=== PATIENT | male | born 1975 | race Caucasian/White ===

== ENCOUNTER 2017-05-19 10:19 | Emergency (ER) | END 2017-05-19 11:05 | disposition home or self-care (01) ==

== ENCOUNTER 2017-06-26 11:25 | Emergency (ER) | END 2017-06-26 15:16 | disposition home or self-care (01) ==

== ENCOUNTER 2018-06-17 09:42 | Emergency (ER) | payer MEDICAID ==
[~2018-06-17] VITALS: Ht 152.4 cm; Wt 64.1 kg
[~2018-06-17 09:42] MED LIST: ALBU18HF INHALATION; ALPR0.25 PO; AMOX1TAB10 PO; AZIT500T3 PO; BENZ-6 PO; CETI10CA PO; FAMO-96 PO; FLUT9.9S NASAL; GUAI118L94 PO; HYDR-3498 PO; IBUP-1542 PO; LORA-441 PO; LORA1TAB54 PO; MAG355OR15 PO; METH500T PO; NAPR-985 PO; ONDA4TAB8 PO; PRED20TA PO; PRED5DRO20 BOTH EYES; PROM25TA14 PO; SODI30SP2 NS
[2018-06-17 09:45] VITALS: BP 132/72; PULSE 105; RESP 18; Ht 152.4 cm; Wt 64.1 kg
[2018-06-17] MEDS ORDERED: DOXY100T20 PO (10:53)
[2018-06-17] MEDS ORDERED: HC30CR25 TOP (10:53)
[2018-06-17] MEDS ORDERED: NYST15CR28 TOP (10:53)
--- NOTE | 2018-06-17 11:05 | ERD ---
ER Documentation Chief Complaint Chief Complaint GENITAL PAIN X 1 WEEK HPI 43-year-old male with no significant past medical history presenting to the emergency department complaining of rash to his perineal area for the past 6 days. Symptoms are moderate. He reports associated itching. He has never had these symptoms before. He states he is sexually monogamous with his of many years. He denies any penile discharge, testicular pain, dysuria, abdominal pain, nausea, vomiting, diarrhea, or other symptoms at this time. ROS All systems reviewed and are negative except as per history of present illness. Medications Home Meds Active Scripts Nystatin* (Nystatin*) 15 Gm Cr, 1 APPLIC TOP BID, #1 TUB Prov:JUAN MIGUEL MURILLO PA-C 06/17/18 Hydrocortisone* Topical (Hydrocortisone* Topical) 2.5%-28.3 Gm Cream..g., 1 APPLIC TOP BID, #1 TUB Prov:JUAN MIGUEL MURILLO PA-C 06/17/18 Doxycycline Hyclate* (Doxycycline Hyclate*) 100 Mg Tablet.dr, 100 MG PO BID for 10 Days, TAB Prov:JUAN MIGUEL MURILLO PA-C 06/17/18 Methocarbamol* (Robaxin*) 500 Mg Tab, 500 MG PO Q8, #15 TAB Prov:ADRIANA ORTEZ PA-C 06/26/17 Ibuprofen* (Motrin*) 600 Mg Tab, 600 MG PO Q6, #30 TAB Prov:ADRIANA ORTEZ PA-C 06/26/17 Sodium Chloride (Saline Nasal [place]) 30 Ml [place], 30 ML NS BID for 7 Days, SPRAY Prov:KERLINE BROWN PA-C 05/19/17 Loratadine/Pseudoephedrine* (Claritin-D* 12 Hr) 5-120 Mg Tab.er.12h, 1 TAB PO Q12, #30 TAB.SA Prov:KERLINE BROWN PA-C 05/19/17 Promethazine Hcl* (Phenergan*) 25 Mg Tablet, 25 MG PO Q6 PRN for NAUSEA AND/OR VOMITING, #30 TAB Prov:KERLINE BROWN PA-C 05/19/17 Benzonatate* (Tessalon Perle*) 100 Mg Capsule, 100 MG PO Q8H PRN for COUGH, #30 CAP Prov:KERLINE BROWN PA-C 05/19/17 Amoxicillin/Potassium Clav (Amox-Clav 875-125 mg Tablet) 875-125 mg Tab, 1 TAB PO BID for 10 Days, #20 TAB Prov:YVETTE PRICE NP 12/14/15 Fluticasone Propionate (Flonase Allergy Relief) 9.9 Ml [place].susp, 1 SPRAY NASAL BID, #1 BOTTLE TO EACH NOSTRIL Prov:YVETTE PRICE NP 10/04/15 Ibuprofen* (Motrin*) 600 Mg Tab, 600 MG PO Q6H PRN for PAIN AND OR ELEVATED TEMP, #30 TAB Prov:YVETTE PRICE NP 10/04/15 Cetirizine Hcl* (Zyrtec*) 10 Mg Capsule, 10 MG PO DAILY, #30 TAB.CHEW Prov:YVETTE PRICE NP 10/04/15 Guaifenesin-Codeine Phosphate* (Guaifenesin* with Codeine Liq) 120 Ml Liquid, 5 ML PO Q4H for COUGH, #60 ML Prov:YVETTE PRICE NP 10/04/15 Ibuprofen* (Motrin*) 600 Mg Tab, 600 MG PO Q8, #30 TAB 0 Refills Prov:PATITO JAVED PA-C 08/21/15 Albuterol Sulfate* (Ventolin HFA*) 18 Gm Hfa.aer.ad, 2 PUFF INHALATION Q4H, #1 INHALER Prov:JUAN MIGUEL HUYNH 05/18/15 Prednisone* (Prednisone*) 20 Mg Tab, 40 MG PO DAILY for 4 Days, TAB Prov:JUAN MIGUEL HUYNH. 05/18/15 Naproxen* (Naprosyn*) 500 Mg Tablet, 500 MG PO BID PRN for PAIN AND/OR INFLAMMATION, #20 TAB Prov:JUAN MIGUEL HUYNH. 05/18/15 Azithromycin* (Zithromax*) 500 Mg Tablet, 500 MG PO DAILY for 5 Days, TAB Prov:JUAN MIGUEL HUYNH. 05/18/15 Naproxen* (Naprosyn*) 500 Mg Tablet, 500 MG PO BID PRN for PAIN AND/OR INFLAMMATION, #30 TAB Prov:LIZ GOMEZ MD 11/30/14 Ondansetron Hcl* (Zofran*) 4 Mg Tablet, 4 MG PO Q6H for NAUSEA AND/OR VOMITING, #30 TAB Prov:LIZ GOMEZ MD 11/30/14 Mag Hydrox/Al Hydrox/Simeth (Maalox Max Strength Susp) 769 Ml Oral.susp, 2 TSP PO TID, #12 OZ Prov:LIZ GOMEZ MD 11/30/14 Alprazolam* (Xanax*) 0.25 Mg Tablet, 0.25 MG PO Q8H PRN for ANXIETY, #12 TAB Prov:LIZ GOMEZ MD 11/30/14 Hydrocodone Bit-Acetaminophen* ([place]*) 5-325 Mg Tab, 1 TAB PO Q6 PRN for PAIN, #7 TAB Prov:ANDREY DUENAS MD 11/28/14 Famotidine* (Pepcid*) 20 Mg Tablet, 0 PO BID for 4 Days, TAB Prov:ANDREY DUENAS MD 11/28/14 Lorazepam* (Ativan*) 0.5 Mg Tablet, 0.5 MG PO Q8, #10 Prov:ANDREY DUENAS MD 11/28/14 Reported Medications Prednisolone Acetate* (Pred Forte*) 5 Ml Susp, 1 DROP BOTH EYES QID, EA 11/30/14 Allergies Allergies: Coded Allergies: morphine (Unverified Allergy, Unknown, shaking, 06/26/17) PMhx/Soc History of Surgery: Yes (LEFT "CORNEA" EYE ) Anesthesia Reaction: No Hx Neurological Disorder: No Hx Respiratory Disorders: No Hx Cardiac Disorders: No Hx Psychiatric Problems: No Hx Miscellaneous Medical Probl: No Hx Alcohol Use: No Hx Substance Use: No Hx Tobacco Use: No Smoking Status: Never smoker FmHx Family History: No diabetes Physical Exam Vitals Vital Signs Date Temp Pulse Resp B/P (MAP) Pulse Ox O2 O2 Flow FiO2 Time Delivery Rate 06/17/18 97.8 105 18 132/72 99 09:45 (92) Physical Exam Const: No acute distress Head: Atraumatic Eyes: Normal Conjunctiva ENT: Normal External Ears, Nose and Mouth. Neck: Full range of motion. No meningismus. Resp: Clear to auscultation bilaterally Cardio: Regular rate and rhythm, no murmurs Abd: Soft, non tender, non distended. Normal bowel sounds. No rebound tenderness or guarding. No McBurney's point tenderness. Skin: Macular papular type rash noted to the perineum and of the guzman cleft. Back: No midline or flank tenderness Ext: No cyanosis, or edema Neur: Awake and alert Psych: Normal Mood and Affect Procedures/MDM 43-year-old male presenting the emergency department with signs and symptoms most consistent with folliculitis or dermatitis. The patient is stable and appropriate for treatment as an outpatient with prescriptions. Patient's dermatologic symptoms have stabilized while they have been evaluated in the department and are appropriate for outpatient work up. No evidence of Liu Ajay's syndrome, Kawasaki's, or sepsis. Departure Diagnosis: Primary Impression: Rash and other nonspecific skin eruption Condition: Fair Patient Instructions: Self-Care for Skin Rashes Additional Instructions: Llame al doctor MAANA y mony reena JANICE PARA DENTRO DE 1-2 HANCOCK.Dgale a la secretaria que nosotros le instruimos hacer esta janice.Avise o llame si bella condicin se empeora antes de la janice. Regresa aqui si peor o no mejor. JUAN MIGUEL MURILLO PA-C Jun 17, 2018 11:05
[2018-06-18] MEDS ORDERED: ACYC800T5 PO (10:17)
[2018-06-18] MEDS ORDERED: HYDR-4011 PO (10:19)
== END 2018-06-17 11:52 | disposition home or self-care (01) ==
LOC: FTE 09:42
DX: R21 Rash and other nonspecific skin eruption (principal)
CPT/HCPCS: 99283

== ENCOUNTER 2018-06-18 09:44 | Emergency (ER) | payer MEDICAID ==
[~2018-06-18] VITALS: Ht 152.4 cm; Wt 64.4 kg
[~2018-06-18 09:44] MED LIST changes: +DOXY100T20 PO; +HC30CR25 TOP; +NYST15CR28 TOP
[2018-06-18 09:46] VITALS: BP 130/76; PULSE 84; RESP 19; Ht 152.4 cm; Wt 64.4 kg
[2018-06-18] MEDS ORDERED: ACYC800T5 PO (10:17)
[2018-06-18] MEDS ORDERED: HYDR-4011 PO (10:19)
[2018-06-18] MEDS ORDERED: HYDROCODONE/APAP (10/325) TAB PO ONE (10:30)
--- NOTE | 2018-06-18 17:06 | ERD ---
ER Documentation Chief Complaint Chief Complaint groin pain/blisters on penis/buttocks x 3 days given antibiotics yesterday HPI This is a 43-year-old male who presents to the ER with complaint of penile and rectal pain. Patient was seen at this ER yesterday for the same and was prescribed antibiotics. Patient complaining today that pain is severe and burning and antibiotics are not helping. ROS All systems reviewed and are negative except as per history of present illness. Medications Home Meds Active Scripts Hydrocodone/Acetaminophen ([place] 5-325 Tablet) 1 Each Tablet, 1 EACH PO Q4 for pain for 3 Days, #10 TAB Prov:FARZANA NUNEZ NP 06/18/18 Acyclovir* (Zovirax*) 800 Mg Tablet, 800 MG PO TID for 3 Days, TAB Prov:FARZANA NUNEZ NP 06/18/18 Nystatin* (Nystatin*) 15 Gm Cr, 1 APPLIC TOP BID, #1 TUB Prov:JUAN MIGUEL MURILLO PA-C 06/17/18 Hydrocortisone* Topical (Hydrocortisone* Topical) 2.5%-28.3 Gm Cream..g., 1 APPLIC TOP BID, #1 TUB Prov:JUAN MIGUEL MURILLO PA-C 06/17/18 Doxycycline Hyclate* (Doxycycline Hyclate*) 100 Mg Tablet.dr, 100 MG PO BID for 10 Days, TAB Prov:JUAN MIGUEL MURILLO PA-C 06/17/18 Methocarbamol* (Robaxin*) 500 Mg Tab, 500 MG PO Q8, #15 TAB Prov:ADRIANA ORTEZ PA-C 06/26/17 Ibuprofen* (Motrin*) 600 Mg Tab, 600 MG PO Q6, #30 TAB Prov:ADRIANA ORTEZ PA-C 06/26/17 Sodium Chloride (Saline Nasal [place]) 30 Ml [place], 30 ML NS BID for 7 Days, SPRAY Prov:KERLINE BROWN PA-C 05/19/17 Loratadine/Pseudoephedrine* (Claritin-D* 12 Hr) 5-120 Mg Tab.er.12h, 1 TAB PO Q12, #30 TAB.SA Prov:KERLINE BROWN PA-C 05/19/17 Promethazine Hcl* (Phenergan*) 25 Mg Tablet, 25 MG PO Q6 PRN for NAUSEA AND/OR VOMITING, #30 TAB Prov:KERLINE BROWN PA-C 05/19/17 Benzonatate* (Tessalon Perle*) 100 Mg Capsule, 100 MG PO Q8H PRN for COUGH, #30 CAP Prov:KERLINE BROWN PA-C 05/19/17 Amoxicillin/Potassium Clav (Amox-Clav 875-125 mg Tablet) 875-125 mg Tab, 1 TAB PO BID for 10 Days, #20 TAB Prov:YVETTE PRICE NP 12/14/15 Fluticasone Propionate (Flonase Allergy Relief) 9.9 Ml [place].susp, 1 SPRAY NASAL BID, #1 BOTTLE TO EACH NOSTRIL Prov:YVETTE PRICE NP 10/04/15 Ibuprofen* (Motrin*) 600 Mg Tab, 600 MG PO Q6H PRN for PAIN AND OR ELEVATED TEMP, #30 TAB Prov:YVETTE PRICE NP 10/04/15 Cetirizine Hcl* (Zyrtec*) 10 Mg Capsule, 10 MG PO DAILY, #30 TAB.CHEW Prov:YVETTE PRICE NP 10/04/15 Guaifenesin-Codeine Phosphate* (Guaifenesin* with Codeine Liq) 120 Ml Liquid, 5 ML PO Q4H for COUGH, #60 ML Prov:YVETTE PRICE NP 10/04/15 Ibuprofen* (Motrin*) 600 Mg Tab, 600 MG PO Q8, #30 TAB 0 Refills Prov:PATITO JAVED PA-C 08/21/15 Albuterol Sulfate* (Ventolin HFA*) 18 Gm Hfa.aer.ad, 2 PUFF INHALATION Q4H, #1 INHALER Prov:JUAN MIGUEL HUYNH 05/18/15 Prednisone* (Prednisone*) 20 Mg Tab, 40 MG PO DAILY for 4 Days, TAB Prov:JUAN MIGUEL HUYNH 05/18/15 Naproxen* (Naprosyn*) 500 Mg Tablet, 500 MG PO BID PRN for PAIN AND/OR INFLAMMATION, #20 TAB Prov:JUAN MIGUEL HUYNH 05/18/15 Azithromycin* (Zithromax*) 500 Mg Tablet, 500 MG PO DAILY for 5 Days, TAB Prov:MICHELLEESHAMOIZJUAN MIGUEL Iman 05/18/15 Naproxen* (Naprosyn*) 500 Mg Tablet, 500 MG PO BID PRN for PAIN AND/OR INFLAMMA TION, #30 TAB Prov:LIZ GOMEZ MD 11/30/14 Ondansetron Hcl* (Zofran*) 4 Mg Tablet, 4 MG PO Q6H for NAUSEA AND/OR VOMITING, #30 TAB Prov:LIZ GOMEZ MD 11/30/14 Mag Hydrox/Al Hydrox/Simeth (Maalox Max Strength Susp) 769 Ml Oral.susp, 2 TSP PO TID, #12 OZ Prov:LIZ GOMEZ MD 11/30/14 Alprazolam* (Xanax*) 0.25 Mg Tablet, 0.25 MG PO Q8H PRN for ANXIETY, #12 TAB Prov:LIZ GOMEZ MD 11/30/14 Hydrocodone Bit-Acetaminophen* ([place]*) 5-325 Mg Tab, 1 TAB PO Q6 PRN for PAIN, #7 TAB Prov:ANDREY DUENAS MD 11/28/14 Famotidine* (Pepcid*) 20 Mg Tablet, 0 PO BID for 4 Days, TAB Prov:ANDREY DUENAS MD 11/28/14 Lorazepam* (Ativan*) 0.5 Mg Tablet, 0.5 MG PO Q8, #10 Prov:ANDREY DUENAS MD 11/28/14 Reported Medications Prednisolone Acetate* (Pred Forte*) 5 Ml Susp, 1 DROP BOTH EYES QID, EA 11/30/14 Allergies Allergies: Coded Allergies: morphine (Unverified Allergy, Unknown, shaking, 06/26/17) PMhx/Soc Medical and Surgical Hx: pt denies Medical Hx History of Surgery: Yes (LEFT "CORNEA" EYE ) Anesthesia Reaction: No Hx Neurological Disorder: No Hx Respiratory Disorders: No Hx Cardiac Disorders: No Hx Psychiatric Problems: No Hx Miscellaneous Medical Probl: No Hx Alcohol Use: No Hx Substance Use: No Hx Tobacco Use: No Smoking Status: Never smoker FmHx Family History: No diabetes, No coronary disease, No other Physical Exam Vitals Vital Signs Date Temp Pulse Resp B/P (MAP) Pulse Ox O2 O2 Flow FiO2 Time Delivery Rate 06/18/18 98.2 84 19 130/76 99 09:46 (94) Physical Exam Const: Mild distress Head: Atraumatic Eyes: Normal Conjunctiva ENT: Normal External Ears, Nose and Mouth. Neck: Full range of motion. No meningismus. Resp: Clear to auscultation bilaterally Cardio: Regular rate and rhythm, no murmurs Abd: Soft, non tender, non distended. Normal bowel sounds Skin: No petechiae or rashes. Genitals: Multiple fluid-filled vesicles present on patient's scrotum, head of penis, and at anus. No penile discharge observed. Right and left testicle in place without swelling, no varicocele palpated. Back: No midline or flank tenderness Ext: No cyanosis, or edema Neur: Awake and alert Psych: Normal Mood and Affect Results 24 hrs Current Medications Medications Dose Sig/Sy Start Time Status Last (Trade) Ordered Route PRN Stop Time Admin Dose Reason Admin 1 tab ONCE ONCE 06/18/18 DC 06/18/18 Acetaminophen PO 10:30 10:28 / 06/18/18 10:31 Hydrocodone Bitart ([place] ()) Procedures/MDM This 43-year-old male presents to the ER with pain in scrotum. STI, varicocele, testicular torsion, hydrocele, scrotal abscess, herpes zoster were considered. Patient treated for herpes simplex type II considering the location, consistency, color, distribution of rash. Patient states he is monogamous with his and uses condoms. She was instructed to avoid intercourse until resolution of rash. Patient was provided with acyclovir and [place] for pain. She was instructed to follow-up with primary care provider in 5-7 days for recheck. Patient verbalized understanding of signs and symptoms of worsening of condition and when to return to emergency room. [place] database reviewed for controlled substance history. There is no indication the patient is abusing prescription medications or is at risk for misuse. History and Physical exam demonstrate the prescribed medication is indicated for the treatment of the patient's condition. Departure Diagnosis: Primary Impression: Herpes genitalis in men Condition: Stable Patient Instructions: Herpes: Treatment with Medication , Herpes Genitalis, Hsv: Type Ii Additional Instructions: Call your primary care doctor TOMORROW for an appointment during the next 1-2 days.See the doctor sooner or return here if your condition worsens before your appointment time. FARZANA NUNEZ NP Jun 18, 2018 17:06
== END 2018-06-18 11:00 | disposition home or self-care (01) ==
LOC: FTE 09:44
DX: A60.02 Herpesviral infection of other male genital organs (principal)
CPT/HCPCS: Z7502; Z7610; 99283